=== PATIENT | female | born 1945 | race Caucasian/White ===

== ENCOUNTER 2019-07-28 20:42 | Emergency (ER) | payer MEDICARE, BC ==
--- NOTE | 2019-07-28 21:32 | ED ---
Hypertension - HPI Summary HPI Summary: Pt is a 73 y/o F presenting to the ED with a chief complaint of HTN. She states she had dental pain initially onset on 07/25/19, and has been unable to get a prescription since, and the pain has radiated to her entire jaw. Today, she started Amoxicilln, and notes that her blood pressure has increased. The pts states she was breathing strangely earlier, however she denies SOB and CP. - History of Current Complaint Chief Complaint: EDHypertension Stated Complaint: DENTAL PAIN/HIGH BLOOD PRESSURE PER PT Time Seen by Provider: 07/28/19 21:14 Hx Obtained From: Patient Onset/Duration: Started Days Ago, Still Present Timing: Constant, Lasting Days Aggravating Factor(s): Other: - dental pain Alleviating Factor(s): Nothing Associated Signs & Symptoms: Pain - Allergies/Home Medications Allergies/Adverse Reactions: Allergies Allergy/AdvReac Type Severity Reaction Status Date / Time Sulfa (Sulfonamide Allergy Rash Verified 07/28/19 20:46 Antibiotics) PMH/Surg Hx/FS Hx/Imm Hx Previously Healthy: Yes Endocrine/Hematology History: Denies: Hx Diabetes Cardiovascular History: Reports: Hx Hypertension Infectious Disease History: No Infectious Disease History: Denies: Traveled Outside the [place] in Last 30 Days - Family History Known Family History: Negative: Cardiac Disease - Social History Hx Substance Use: No Substance Use Type: Reports: None Hx Tobacco Use: No Smoking Status (MU): Never Smoked Tobacco Review of Systems Positive: Other - HTN Positive: Dental Pain Negative: Chest Pain Negative: Shortness Of Breath All Other Systems Reviewed And Are Negative: Yes Physical Exam - Summary Physical Exam Summary: Appearance: Well-appearing, Well-nourished, lying in bed comfortable Skin: Warm, dry, no obvious rash Eyes: sclera anicteric, no conjunctival pallor ENT: mucous membranes moist. There is some gingival tenderness about the R upper 1st and 2nd molars with localized gingival edema but no pointing. Neck: deferred Respiratory: No signs of respiratory distress Cardiovascular: Appears well perfused, pulses are nml Abdomen: deferred Musculoskeletal: Moving all 4 extremities without obvious discomfort Neurological: Awake and alert, mentation is normal, speech is fluent and appropriate Psychiatric: affect is normal, does not appear anxious or depressed Triage Information Reviewed: Yes Vital Signs On Initial Exam: Initial Vitals Temp Pulse Resp BP Pulse Ox 97.2 F 68 15 188/81 98 07/28/19 20:45 07/28/19 20:45 07/28/19 20:45 07/28/19 20:45 07/28/19 20:45 Vital Signs Reviewed: Yes Diagnostics - Vital Signs Vital Signs Temp Pulse Resp BP Pulse Ox 07/28/19 20:45 97.2 F 68 15 188/81 98 - Laboratory Lab Statement: Any lab studies that have been ordered have been reviewed, and results considered in the medical decision making process. Hypertension Course/Dx - Course Course Of Treatment: Pt is a 73 y/o F presenting to the ED with a chief complaint of HTN. She states she had dental pain initially onset on 07/25/19, and has been unable to get a prescription since, and the pain has radiated to her entire jaw. Today, she started Amoxicilln, and notes that her blood pressure has increased. The pts states she was breathing strangely earlier, however she denies SOB and CP. On exam, there is some gingival tenderness about the R upper 1st and 2nd molars with localized gingival edema but no pointing. I did a dental block for the pt with approximately 3ccs of 0.5 % Lidocaine. The pt had positive results. She will be d/c'ed with dx of dental abscess. She is stable and agreeable with this plan. - Diagnoses Provider Diagnoses: Dental abscess Discharge ED - Sign-Out/Discharge Documenting (check all that apply): Patient Departure Patient Received Moderate/Deep Sedation with Procedure: No - Discharge Plan Condition: Stable Disposition: HOME Patient Education Materials: Dental Abscess (ED) Referrals: Kelvin Oneil JR, PA [Primary Care Provider] - Additional Instructions: Your pain should start getting better over the next couple of days as the antibiotics tamp down the infection. The block I gave you tonight usually will last 4-8 hrs, but you can take the pain pills if needed. - Billing Disposition and Condition Condition: STABLE Disposition: Home - Attestation Statements Document Initiated by Scribe: Yes Documenting Scribe: Radha Duvall Provider For Whom Zacharye is Documenting (Include Credential): Baldemar Rhodes MD. Scribe Attestation: IRadha, scribed for Baldemar Rhodes MD. on 07/29/19 at 0411. Scribe Documentation Reviewed: Yes Provider Attestation: The documentation as recorded by the scribe, Radha Duvall accurately reflects the service I personally performed and the decisions made by me, Baldemar Rhodes MD. Status of Scribe Document: Viewed
[2019-07-28 21:50] VITALS: BP 140/80
== END 2019-07-28 21:48 | disposition home or self-care (01) ==
LOC: ED 20:42
DX: K04.7 Periapical abscess without sinus (principal); I10 Essential (primary) hypertension; Z88.2 Allergy status to sulfonamides
CPT/HCPCS: 99281